=== PATIENT | female | born 1955 | race Caucasian/White ===

== ENCOUNTER → 2018-01-31 | Outpatient (CLI) | payer OTHER ==
[~2018-01-31] MED LIST: AMLO5 PO; CALC.25 PO; CHOL10002 PO; CLON.1 PO; CONESTTC VAG; Calcium 600 W/1 EAC1 PO; FURO20 PO; HYDSUL200 PO; L-LYSINE500 MG PO; LAXATIVE DIETA500 MG PO; LEVSOD100 PO; LOSA50 PO; Nortriptyline H10 MG PO; OMEP20ER PO; POTCHL10ER PO; SIMV10 PO; ZOLP5 PO
== END ==
LOC: LAB SHORT 07:54 → PLD 07:54 → EDSTATUS 10:09
DX: N95.0 Postmenopausal bleeding (principal)
CPT/HCPCS: 88305

== ENCOUNTER 2019-12-18 07:06 | Day surgery (SDC) | payer MEDICARE ==
[~2019-12-18] VITALS: Ht 149.9 cm; Wt 66.9 kg
[~2019-12-18 07:06] MED LIST changes: +BIOTIN2500 MCG PO; +CALCIUM PO; +FA-80.8 MG PO; +GABA100 PO
--- NOTE | 2019-12-18 08:07 | NUR ---
12/18/19 0807 Reva Kinney 1 IV ATTEMPT RH VALVE 1 SUCCESSFUL IV RAC PT TOW
== END 2019-12-18 09:05 | disposition home or self-care (01) ==
LOC: ORSCSDS 07:06
PROVIDERS: Internal Medicine Gastroenterology
PROC: 0DB58ZX Excision of Esophagus, Via Natural or Artificial Opening Endoscopic, Diagnostic (ICD-10-PCS; principal; 2019-12-18 08:30)
DX: R13.10 Dysphagia, unspecified (principal); K21.0 Gastro-esophageal reflux disease with esophagitis; K22.2 Esophageal obstruction; I10 Essential (primary) hypertension; E03.9 Hypothyroidism, unspecified; M06.9 Rheumatoid arthritis, unspecified; N18.2 Chronic kidney disease, stage 2 (mild); Z79.899 Other long term (current) drug therapy
CPT/HCPCS: 88305; 88312; J2704; J7120

== ENCOUNTER 2021-02-04 09:46 | Day surgery (SDC) | payer OTHER ==
[~2021-02-04] VITALS: Ht 149.9 cm; Wt 76.8 kg
--- NOTE | 2021-02-04 13:00 | NUR ---
02/04/21 1300 EMMA VALLE 1212 PT UP TO BATHROOM UPON ENTRY TO SDU. ABLE TO URINIATED.
== END 2021-02-04 12:53 | disposition home or self-care (01) ==
LOC: ORSCSDS 09:46
PROVIDERS: Obstetrics & Gynecology
PROC: 0UDB8ZX Extraction of Endometrium, Via Natural or Artificial Opening Endoscopic, Diagnostic (ICD-10-PCS; principal; 2021-02-04 11:00)
DX: N95.0 Postmenopausal bleeding (principal); D25.0 Submucous leiomyoma of uterus; N84.0 Polyp of corpus uteri; I10 Essential (primary) hypertension; K21.9 Gastro-esophageal reflux disease without esophagitis; N18.9 Chronic kidney disease, unspecified; E03.9 Hypothyroidism, unspecified; E66.9 Obesity, unspecified; Z68.34 Body mass index [BMI] 34.0-34.9, adult; Z79.899 Other long term (current) drug therapy
CPT/HCPCS: 88305; J0690; J1100; J2250; J2405; J2704; J3010; J7120

== ENCOUNTER → 2022-02-17 | Outpatient (CLI) | payer MEDICARE ==
[2022-02-18 09:52] LABS: Stool Occult Bld Immuno 1 Negative (NEGATIVE)
== END | disposition home or self-care (01) ==
LOC: LAB 12:00 → LAB SHORT 12:00
PROVIDERS: Physician Assistant
DX: Z12.11 Encounter for screening for malignant neoplasm of colon (principal)
CPT/HCPCS: G0328

== ENCOUNTER 2022-10-20 10:57 | Day surgery (SDC) | payer MEDICARE ==
[2022-10-18 10:21] LABS: BASOPHILS ABSOLUTE AUTO 0.06 K/mm3 (0.00-0.23); BASOPHILS PERCENT AUTO 1 % (0-2); EOSINOPHILS ABSOLUTE AUTO 0.23 K/mm3 (0.00-0.68); EOSINOPHILS PERCENT AUTO 3 % (0-6); Hematocrit 40.9 % (33.0-51.0); Hemoglobin 13.3 g/dL (11.5-16.0); IMMATURE GRAN ABSOLUTE AUTO 0.07 K/mm3 (0.00-0.10); IMMATURE GRAN PERCENT AUTO 1 % (0-1); LYMPHOCYTES ABSOLUTE AUTO 1.54 K/mm3 (0.84-5.20); LYMPHOCYTES PERCENT AUTO 21 % (21-46); MONOCYTES ABSOLUTE AUTO 0.58 K/mm3 (0.16-1.47); MONOCYTES PERCENT AUTO 8 % (4-13); Mean Corpuscular HGB 29.3 pg (26.0-34.0); Mean Corpuscular HGB Conc 32.5 g/dL (31.5-36.5); Mean Corpuscular Volume 90 fL (80-100); Mean Platelet Volume 11.5 fL (9.1-12.4); NEUTROPHILS ABSOLUTE AUTO 4.92 K/mm3 (1.96-9.15); NEUTROPHILS PERCENT AUTO 67 % (41-73); Platelet Count 260 K/mm3 (150-400); RDW Coefficient Variation 13.1 % (11.7-14.2); RDW Standard Deviation 43.4 fL (35.1-46.3); Red Blood Cell Count 4.54 M/mm3 (3.80-5.20)
[~2022-10-20] VITALS: Ht 149.9 cm; Wt 68.4 kg
[~2022-10-20 10:57] MED LIST changes: +PANT40 PO
[2022-10-20 14:34] LABS: Bicarbonate Venous 25.2 mmol/L (24.0-30.0); PCO2 Venous 36.7 mmHg (38-42); pH Blood Venous 7.44 (7.34-7.37)
[2022-10-20 15:14] LABS: Bun/Creatinine Ratio 17.6 (12.0-20.0); Calcium, Blood 7.7 mg/dL (8.5-10.1); Creatinine, Blood 1.25 mg/dL (0.40-1.00); Potassium, Blood 3.5 mmol/L (3.5-5.5)
--- NOTE | 2022-10-20 18:39 | NUR ---
PATIENT ARRIVED TO UNIT AT 1815. TRANSFERRED FROM [facility] TO BED VIA SLIDER SHEET. VSS ON 2L 02, SATS >92%. LUNGS CLEAR. X4 LAP SITES TO ABDOMEN W/ DERMABOND, C/D/I. ATKINS CATH IN PLACE DRAINING CLEAR YELLOW URINE TO GRAVITY. PATIENT REPORTS PAIN 3/10 AT THIS TIME, PLAN TO MEDICATE FOR PAIN AND NAUSEA PER EMAR PRN. ORIENTED TO ROOM AND CALL LIGHT, IN REACH. WILL REPORT TO ONCOMING RN AT 1900.
--- NOTE | 2022-10-20 22:00 | NUR ---
PLACED ABDOMINAL BINDER ON. PT TOLERATED THIS PROCEDURE WELL.
--- NOTE | 2022-10-20 23:30 | NUR ---
PLACED 2L O2 BACK ON, PT IS SNORING AND PT IS IN HIGH SEMI FOWLERS POSITION IN BED.
--- NOTE | 2022-10-21 01:01 | NUR ---
O2 TURNED DOWN TO 1L VIA NC, SATS WNL. WILL CONTINUE TO MONITOR AND WEAN O2 OFF.
--- NOTE | 2022-10-21 04:09 | NUR ---
PT REPORTS GERD TYPE PAIN, RADIATES UP INTO HER THROAT. PT DENIES ANY SOB, SHOULDER/JAW PAIN, N/T, BACK PAIN, OR NAUSEA. PT DIDN'T TAKE HER PROTONIX LAST NOC - RELAYED THE ABOVE INFORMATION TO NETO LOMBARDI - RECOMMENDATION IS TO TRY PROTONIX PO EARLY TO DETERMINE IF THIS DECREASES HER PAIN. REPORTED TO PT TO CALL IF PAIN INCREASES. WILL CONTINUE TO MONITOR UNTIL AM SHIFT CHANGE. CALL LIGHT WITHIN REACH. FLUIDS/ICE CHIPS AT BEDSIDE - PT TOLERATING PO FLUIDS WELL.
--- NOTE | 2022-10-21 04:37 | NUR ---
SHIFT SUMMARY - PT HAS GERD TYPE PAIN THIS AM - SEE PREVIOUS NOTE - MONITORING TO SEE IF RELIEF AFTER PRILOSEC GIVEN THIS AM. PT'S HOB ELEVATED, PT REPORTED "A LITTLE RELIEF" WITH THIS INTERVENTION. OTHERWISE NO ACUTE CHANGES THROUGHOUT THIS SHIFT. PT TOLERATING PO FLUIDS, ICE CHIPS, JELLO WITHOUT COMPLICATIONS. PT DID COMPLAIN OF THROAT PAIN - ICE CHIPS PROVIDED WITH RELIEF. KPAD TO ABDOMEN, ALONG WITH ABDOMINAL BINDER AND PILLOW FOR TCDB. IS AT BEDSIDE - PROVIDED INSTRUCTION ON USE. PT HAS BEEN SLEEPING THROUGHOUT MOST OF THE NIGHT. WILL CONTINUE TO MONITOR UNTIL AM SHIFT CHANGE.
[2022-10-21 05:17] LABS: BASOPHILS ABSOLUTE AUTO 0.01 K/mm3 (0.00-0.23); BASOPHILS PERCENT AUTO 0 % (0-2); EOSINOPHILS PERCENT AUTO 0 % (0-6); Hemoglobin 12.3 g/dL (11.5-16.0); IMMATURE GRAN ABSOLUTE AUTO 0.05 K/mm3 (0.00-0.10); IMMATURE GRAN PERCENT AUTO 0 % (0-1); LYMPHOCYTES ABSOLUTE AUTO 0.97 K/mm3 (0.84-5.20); LYMPHOCYTES PERCENT AUTO 8 % (21-46); MONOCYTES PERCENT AUTO 2 % (4-13); Mean Corpuscular HGB 29.6 pg (26.0-34.0); Mean Corpuscular HGB Conc 33.2 g/dL (31.5-36.5); Mean Corpuscular Volume 89 fL (80-100); Mean Platelet Volume 11.4 fL (9.1-12.4); NEUTROPHILS ABSOLUTE AUTO 10.61 K/mm3 (1.96-9.15); NEUTROPHILS PERCENT AUTO 90 % (41-73); Platelet Count 243 K/mm3 (150-400); RDW Coefficient Variation 13.1 % (11.7-14.2); RDW Standard Deviation 43.3 fL (35.1-46.3); Red Blood Cell Count 4.15 M/mm3 (3.80-5.20); White Blood Cell Count 11.84 K/mm3 (4.00-11.30)
--- NOTE | 2022-10-21 05:40 | NUR ---
ATKINS REMOVED, JERI CARE PROVIDED, SCANT AMOUNT OF BLOOD ON JERI PAD. PT REPORTS GERD PAIN IS GONE. OXYGEN REMOVED. PT SITTING UP IN HIGH SEMI FOWLERS POSITION. CALL LIGHT WITHIN REACH. BED IN LOW POSITION. FLUIDS AT BEDSIDE.
[2022-10-21] MEDS ORDERED: Percocet 5-3251 EACH PO (11:25)
[2022-10-21] MEDS ORDERED: SIME80CH PO (11:25)
[2022-10-21] MEDS ORDERED: PROM25 PO (11:25)
--- NOTE | 2022-10-21 11:30 | NUR ---
DISCHARGE NOTE: PATIENT WAS EDUCATED ON DISCHARGE INSTRUCTIONS. SHE VERBALIZED UNDERSTANDING OF INSTRUCTIONS AND HAD NO FURTHER QUESTIONS AT THIS TIME. IV WAS TAKEN OUT AND WNL. PAIN IS MANAGED WITH ORAL PAIN MEDICATIONS. HER ABD X4 LAP SITES WITH WOUND GLUE ARE C/D/I. THERE IS A SCANT AMOUNT OF BLOOD ON HER JERI PAD. SHE IS TOLERATING PO INTAKE AND IS VOIDING. PATIENT IS DRESSED AND HAS HER PERSONAL ITEMS IN THE ROOM GATHERED. HARD PERSCRIPTIONS WERE ALREADY FILLED OUT PRIOR TO PROCEDURE. PATIENT IS BEING WHEELCHAIRED OUT TO HER HUSBANDS CAR TO BE TAKEN HOME.
== END 2022-10-21 11:30 | disposition home or self-care (01) ==
LOC: ORSCMMR 10:57 → ORD 12:30 → ORSCMMR 13:00 → SURS 18:21 → ORSCMMR 10-21 11:30
PROVIDERS: Anesthesiology; Obstetrics & Gynecology
PROC: 8E0W4CZ Robotic Assisted Procedure of Trunk Region, Percutaneous Endoscopic Approach (ICD-10-PCS; principal; 2022-10-20 13:00)
PROC: 0UT2FZZ Resection of Bilateral Ovaries, Via Natural or Artificial Opening With Percutaneous Endoscopic Assistance (ICD-10-PCS; principal; 2022-10-20 13:00)
PROC: 0UT7FZZ Resection of Bilateral Fallopian Tubes, Via Natural or Artificial Opening With Percutaneous Endoscopic Assistance (ICD-10-PCS; principal; 2022-10-20 13:00)
PROC: 0UT9FZZ Resection of Uterus, Via Natural or Artificial Opening With Percutaneous Endoscopic Assistance (ICD-10-PCS; principal; 2022-10-20 13:00)
DX: N95.0 Postmenopausal bleeding (principal); D25.0 Submucous leiomyoma of uterus; N83.292 Other ovarian cyst, left side; N83.291 Other ovarian cyst, right side; N94.89 Other specified conditions associated with female genital organs and menstrual cycle; K66.0 Peritoneal adhesions (postprocedural) (postinfection); N70.11 Chronic salpingitis; N80.03 Adenomyosis of the uterus; I12.9 Hypertensive chronic kidney disease with stage 1 through stage 4 chronic kidney disease, or unspecified chronic kidney disease; N18.9 Chronic kidney disease, unspecified; E03.9 Hypothyroidism, unspecified; Z79.899 Other long term (current) drug therapy
CPT/HCPCS: 58571; S2900; 36415; 80048; 82803; 85025; 86850; 86900; 86901; 88307; 93005; 93010; 94760; A9270; J0690; J1100; J1170; J1650; J2370; J2405; J2550; J2704; J3010; J7120

== ENCOUNTER 2024-08-30 17:17 | Inpatient (IN) | payer MEDICARE ==
[~2024-08-30] VITALS: Ht 149.9 cm; Wt 67.2 kg
[~2024-08-30 17:17] MED LIST changes: -ATOR10 PO; -Amoxicillin500 MG PO; -BUDESONIDE1 MG/2 M1 INH; -CALCIUM CARBON500 M1 PO; -CYMBALTA30 M2 PO; -DEXA.5 PO; -GLIP2.5ER PO; -LEVOTHYROXINE112 M18 PO; -METF500 PO; -METFORMIN HCL500 M2 PO; -PREG150 PO
[2024-08-30 18:35] LABS: Base Excess Venous 4.4 mmol/L; Bicarbonate Venous 26.9 mmol/L (24.0-30.0); pH Blood Venous 7.39 (7.34-7.37)
[2024-08-30 19:06] LABS: Source, Urine Clean Catch
[2024-08-30 19:11] LABS: Appearance, Urine Clear (Clear); Bilirubin, Urine Neg (Neg); Blood, Urine 2+ (Neg); Color, Urine Yellow (P-Yellow); Glucose Qualitative, Urine 3+ (Neg); Ketones, Urine Neg (Neg); Leukocyte Esterase, Urine 2+ (Neg); Nitrite, Urine Neg (Neg); Protein, Urine 3+ (Neg); Urobilinogen, Urine NORM (Normal)
[2024-08-30 19:22] LABS: Albumin, Blood 4.1 g/dL (3.4-5.0); Albumin/Globulin Ratio 1.1 (0.8-1.8); Beta-hydroxybutyrate 3.4 mg/dL (0.2-2.8); Bilirubin, Total 0.5 mg/dL (0.1-1.0); Bun/Creatinine Ratio 16.9 (12.0-20.0); Calcium, Blood 8.2 mg/dL (8.5-10.1); Creatinine, Blood 3.32 mg/dL (0.40-1.00); Globulin, Blood 3.7 g/dL (2.2-4.0); Total Protein, Blood 7.8 g/dL (6.4-8.2)
[2024-08-30 19:23] LABS: Bacteria Mod /hpf; Squamous Epithelial Cells Few /hpf (Few)
[2024-08-30] MEDS ORDERED: LEVOTHYROXINE112 M18 PO (21:09)
[2024-08-30] MEDS ORDERED: CYMBALTA30 M2 PO (21:11)
[2024-08-30] MEDS ORDERED: METF500 PO (21:11)
[2024-08-30] MEDS ORDERED: METFORMIN HCL500 M2 PO (21:11)
[2024-08-30] MEDS ORDERED: PREG150 PO (21:12)
[2024-08-30] MEDS ORDERED: ATOR10 PO (21:13)
[2024-08-30] MEDS ORDERED: NS 1,000 ML IV SCH (22:45)
[2024-08-30] MEDS ORDERED: CefTRIAXone Sodium 1,000 MG in NS 50 ML IV ONE (22:45)
[2024-08-31] MEDS ORDERED: Magnesium Hydroxide Conc 10 ML UDC PO PRN (00:55)
[2024-08-31] MEDS ORDERED: NS 1,000 ML IV SCH (00:55)
[2024-08-31] MEDS ORDERED: Metoclopramide HCl 10 MG Tab PO PRN (00:55)
[2024-08-31] MEDS ORDERED: FLU VACC TS2024-25(6MOS UP)/PF 45 MCG/0.5 ML SYRINGE IM SCH (01:00)
[2024-08-31 05:22] LABS: BASOPHILS ABSOLUTE AUTO 0.05 K/mm3 (0.00-0.23); BASOPHILS PERCENT AUTO 1 % (0-2); EOSINOPHILS ABSOLUTE AUTO 0.38 K/mm3 (0.00-0.68); EOSINOPHILS PERCENT AUTO 6 % (0-6); Hematocrit 36.8 % (33.0-51.0); Hemoglobin 12.3 g/dL (11.5-16.0); IMMATURE GRAN ABSOLUTE AUTO 0.03 K/mm3 (0.00-0.10); IMMATURE GRAN PERCENT AUTO 1 % (0-1); LYMPHOCYTES ABSOLUTE AUTO 1.59 K/mm3 (0.84-5.20); LYMPHOCYTES PERCENT AUTO 25 % (21-46); MONOCYTES ABSOLUTE AUTO 0.43 K/mm3 (0.16-1.47); MONOCYTES PERCENT AUTO 7 % (4-13); Mean Corpuscular HGB 29.7 pg (26.0-34.0); Mean Corpuscular HGB Conc 33.4 g/dL (31.5-36.5); Mean Corpuscular Volume 89 fL (80-100); Mean Platelet Volume 12.3 fL (9.1-12.4); NEUTROPHILS ABSOLUTE AUTO 3.89 K/mm3 (1.96-9.15); NEUTROPHILS PERCENT AUTO 61 % (41-73); Platelet Count 155 K/mm3 (150-400); RDW Coefficient Variation 13.9 % (11.7-14.2); RDW Standard Deviation 45.5 fL (35.1-46.3); Red Blood Cell Count 4.14 M/mm3 (3.80-5.20); White Blood Cell Count 6.37 K/mm3 (4.00-11.30)
[2024-08-31 05:47] LABS: Albumin, Blood 3.4 g/dL (3.4-5.0); Albumin/Globulin Ratio 1.1 (0.8-1.8); Bilirubin, Total 0.3 mg/dL (0.1-1.0); Bun/Creatinine Ratio 16.9 (12.0-20.0); Calcium, Blood 7.4 mg/dL (8.5-10.1); Creatinine, Blood 2.72 mg/dL (0.40-1.00); Globulin, Blood 3.2 g/dL (2.2-4.0); Potassium, Blood 3.7 mmol/L (3.5-5.5); Total Protein, Blood 6.6 g/dL (6.4-8.2)
[2024-08-31] MEDS ORDERED: Acetaminophen 500 MG Tab PO PRN (07:10)
[2024-08-31] MEDS ORDERED: Polyethylene Glycol 3350 17 gm PO PRN (07:10)
[2024-08-31] MEDS ORDERED: OxyCODONE 5 mg/Acetamin 325 mg TABLET PO PRN (07:15)
[2024-08-31] MEDS ORDERED: Insulin Human Lispro 100 Units/ML 3ML Syringe SC SCH (07:30)
[2024-08-31] MEDS ORDERED: Pantoprazole Sodium 40 MG Tab PO SCH (07:30)
[2024-08-31] MEDS ORDERED: AmLODIPine Besylate 5 MG Tab PO SCH (09:00)
[2024-08-31] MEDS ORDERED: Calcitriol 0.25 MCG Cap PO SCH (09:00)
[2024-08-31] MEDS ORDERED: Famotidine 20 MG Tab PO SCH (09:00)
[2024-08-31] MEDS ORDERED: Lactobacil 2-S.Thermo-Bifido 1 1 Cap PO SCH (09:00)
[2024-08-31] MEDS ORDERED: DULoxetine HCL 30 MG Cap DR PO SCH (09:00)
[2024-08-31] MEDS ORDERED: Pregabalin 75 MG Cap PO SCH (09:00)
[2024-08-31] MEDS ORDERED: Levothyroxine Sodium 0.112 MG Tab PO SCH (09:00)
[2024-08-31] MEDS ORDERED: Enoxaparin 30 MG/0.3 ML SYR SC SCH (09:00)
[2024-08-31 13:30] VITALS: BP 132/61
[2024-08-31] MEDS ORDERED: CALCIUM CARBON500 M1 PO (13:59)
[2024-08-31] MEDS ORDERED: ZOLP5 PO (14:03)
[2024-08-31] MEDS ORDERED: BUDESONIDE1 MG/2 M1 INH (14:04)
[2024-08-31] MEDS ORDERED: DEXA.5 PO (14:05)
--- NOTE | 2024-08-31 14:35 | NUR ---
ADMISSION NOTE PATIENT A/OX4, ABLE TO MAKE NEEDS KNOWN. FAMILY AT BEDSIDE DURING ADMISSION. BLOOD SUGAR IN 250s UPON ARRIVAL, INSULIN ADMINISTERED PER MAR. PATIENT ADMITTED WITH FRANK, HYPERGLYCEMIA, AND UTI. PATIENT STATES IS NEWLY DIAGNOSED WITH DM, WAS PREDIEBETIC BEFORE AND STATES HIGH BLOOD SUGARS COULD POSSIBLY BE RELATED TO NEW CANCER MEDS. TELEMETRY IN PLACE. NEW IV PLACED TO LEFT UPPER ARM AND IV TO RIGTH UPPER ARM REMOVED FOR LEAKING.
[2024-08-31 15:27] VITALS: BP 115/61
--- NOTE | 2024-08-31 18:03 | NUR ---
SHIFT SUMMARY PATIENT A/OX4, ABLE TO MAKE NEEDS KNOWN. INDEPENDENT IN ROOM. NO CHANGES SINCE ADMISSION. FAMILY AT BEDSIDE. NEW IV PLACED TO RIGHT UPPER ARM THIS SHIFT. BLOOD SUGARS TRENDING DOWN SINCE ADMISSION, 230s LAST CHECKED. NO OTHER CONCENRS AT THIS TIME.
[2024-08-31 20:46] VITALS: BP 149/67
[2024-08-31] MEDS ORDERED: Docusate Sodium/Senna 1 Tab PO SCH (21:00)
[2024-08-31] MEDS ORDERED: CefTRIAXone Sodium 1,000 MG in NS 100 ML IV SCH (21:00)
[2024-08-31] MEDS ORDERED: Amoxicillin 500 MG Cap PO SCH (21:00)
--- NOTE | 2024-09-01 02:54 | NUR ---
SHIFT SUMMARY @HS FAMILY BY THE BEDSIDE. PT IS A/O X4, PLEASANT AND COOPERATIVE WITH CARE. PT AMBULATES INDEPENDENTLY W/I HOSPITAL ROOM. NO C/O PAIN, N/V DURING THIS SHIFT. TELE; NSR @68. HS B. O2 SAT'S ON RA 100%. NO ACUTE EVENTS DURING THIS SHIFT. BED AT THE LOWEST POSITION, CALL LIGHT W/I REACH. PT IS ABLE TO MAKE HER NEEDS KNOWN.
[2024-09-01 05:05] VITALS: BP 103/60
[2024-09-01 05:59] LABS: Hematocrit 39.4 % (33.0-51.0); Mean Corpuscular HGB 29.5 pg (26.0-34.0); Mean Corpuscular Volume 89 fL (80-100); Mean Platelet Volume 12.3 fL (9.1-12.4); Platelet Count 149 K/mm3 (150-400); RDW Coefficient Variation 13.6 % (11.7-14.2); RDW Standard Deviation 44.2 fL (35.1-46.3); Red Blood Cell Count 4.41 M/mm3 (3.80-5.20); White Blood Cell Count 4.65 K/mm3 (4.00-11.30)
[2024-09-01 06:32] LABS: Albumin, Blood 3.2 g/dL (3.4-5.0); Anion Gap 12 mmol/L (3-11); Blood Urea Nitrogen 24 mg/dL (8-24); CO2, Blood 26 mmol/L (21-32); Calcium, Blood 7.3 mg/dL (8.5-10.1); Chloride, Blood 106 mmol/L (98-108); Creatinine, Blood 1.85 mg/dL (0.40-1.00); Glomerular Filtration Rate 29 (60-); Glucose, Blood 239 mg/dL (70-99); Magnesium, Blood 1.7 mg/dL (1.6-2.4); Phosphorus, Blood 2.2 mg/dL (2.5-4.9); Potassium, Blood 3.5 mmol/L (3.5-5.5); Sodium, Blood 140 mmol/L (136-145)
[2024-09-01 07:57] VITALS: BP 112/62
[2024-09-01] MEDS ORDERED: GLIP2.5ER PO (11:45)
[2024-09-01] MEDS ORDERED: Amoxicillin500 MG PO (11:45)
--- NOTE | 2024-09-01 12:18 | NUR ---
DISCHARGE NOTE PATIENT A/OX4, ABLE TO MAKE NEEDS KNOWN. PLEASANT AND COOPERATIVE WITH CARE. INDEPENDENT IN ROOM. IV REMOVED AND MEDICATIONS FAXED TO [facility] PER PATIENT REQUEST HOME PHARMACY IS CLOSED TODAY. NEW MEDICATIONS ADN FOLLOW UP INSTRUCTIONS DISCUSSED AND PATIENT AGREEABLE. FAMILY AT BEDSIDE DURING DISCHARGE EDUCATION. NO OTHER CONCERNS AT THIS TIME.
== END 2024-09-01 12:05 | disposition home or self-care (01) | DRG 683 ==
LOC: ER 17:17 → ERHOLD 08-31 → MEDS 08-31 13:23
PROVIDERS: Internal Medicine; Physician Assistant; Student in an Organized Health Care Education/Training Program; ADMIT Internal Medicine
DX: N17.9 Acute kidney failure, unspecified (principal); C79.51 Secondary malignant neoplasm of bone; E87.1 Hypo-osmolality and hyponatremia; E11.65 Type 2 diabetes mellitus with hyperglycemia; I12.9 Hypertensive chronic kidney disease with stage 1 through stage 4 chronic kidney disease, or unspecified chronic kidney disease; E11.22 Type 2 diabetes mellitus with diabetic chronic kidney disease; M06.9 Rheumatoid arthritis, unspecified; K21.9 Gastro-esophageal reflux disease without esophagitis; Z96.611 Presence of right artificial shoulder joint; E86.0 Dehydration; C50.919 Malignant neoplasm of unspecified site of unspecified female breast; N18.32 Chronic kidney disease, stage 3b; K04.7 Periapical abscess without sinus; D63.1 Anemia in chronic kidney disease; R82.71 Bacteriuria; E55.9 Vitamin D deficiency, unspecified; E78.00 Pure hypercholesterolemia, unspecified; R76.9 Abnormal immunological finding in serum, unspecified; R94.5 Abnormal results of liver function studies; R94.6 Abnormal results of thyroid function studies; R31.9 Hematuria, unspecified; Z88.8 Allergy status to other drugs, medicaments and biological substances; Z91.048 Other nonmedicinal substance allergy status; Z79.890 Hormone replacement therapy; Z79.899 Other long term (current) drug therapy; Z79.84 Long term (current) use of oral hypoglycemic drugs; Z98.890 Other specified postprocedural states; Z79.891 Long term (current) use of opiate analgesic; Z28.21 Immunization not carried out because of patient refusal
CPT/HCPCS: 36415; 80053; 80069; 81001; 82010; 82728; 82803; 82947; 83036; 83540; 83550; 83735; 85018; 85025; 85027; 87086; 96361; 96365; 96372; 99285-25; A9270; G0378; J0696; J1650; J7030

== ENCOUNTER → 2024-08-30 | Outpatient (CLI) | payer MEDICARE ==
[~2024-08-30] MED LIST changes: +ATOR10 PO; +Amoxicillin500 MG PO; +BUDESONIDE1 MG/2 M1 INH; +CALCIUM CARBON500 M1 PO; +CYMBALTA30 M2 PO; +DEXA.5 PO; +GLIP2.5ER PO; +LEVOTHYROXINE112 M18 PO; +METF500 PO; +METFORMIN HCL500 M2 PO; +PREG150 PO; +PROM25 PO; +Percocet 5-3251 EACH PO; +SIME80CH PO
[2024-08-30 15:59] LABS: BASOPHILS ABSOLUTE AUTO 0.05 K/mm3 (0.00-0.23); BASOPHILS PERCENT AUTO 1 % (0-2); EOSINOPHILS ABSOLUTE AUTO 0.44 K/mm3 (0.00-0.68); EOSINOPHILS PERCENT AUTO 5 % (0-6); Hematocrit 42.3 % (33.0-51.0); Hemoglobin 14.5 g/dL (11.5-16.0); IMMATURE GRAN ABSOLUTE AUTO 0.03 K/mm3 (0.00-0.10); IMMATURE GRAN PERCENT AUTO 0 % (0-1); LYMPHOCYTES ABSOLUTE AUTO 2.12 K/mm3 (0.84-5.20); LYMPHOCYTES PERCENT AUTO 25 % (21-46); MONOCYTES ABSOLUTE AUTO 0.47 K/mm3 (0.16-1.47); MONOCYTES PERCENT AUTO 6 % (4-13); Mean Corpuscular HGB 29.2 pg (26.0-34.0); Mean Corpuscular HGB Conc 34.3 g/dL (31.5-36.5); Mean Corpuscular Volume 85 fL (80-100); Mean Platelet Volume 12.8 fL (9.1-12.4); NEUTROPHILS PERCENT AUTO 63 % (41-73); Platelet Count 194 K/mm3 (150-400); RDW Coefficient Variation 14.2 % (11.7-14.2); RDW Standard Deviation 43.4 fL (35.1-46.3); Red Blood Cell Count 4.97 M/mm3 (3.80-5.20); White Blood Cell Count 8.41 K/mm3 (4.00-11.30)
[2024-08-30 16:07] LABS: Albumin, Blood 4.7 g/dL (3.4-5.0); Albumin/Globulin Ratio 1.1 (0.8-1.8); Bilirubin, Total 0.6 mg/dL (0.1-1.0); Calcium, Blood 9.1 mg/dL (8.5-10.1); Creatinine, Blood 4.19 mg/dL (0.40-1.00); Globulin, Blood 4.2 g/dL (2.2-4.0); Potassium, Blood 4.1 mmol/L (3.5-5.5); Total Protein, Blood 8.9 g/dL (6.4-8.2)
== END | disposition home or self-care (01) ==
LOC: LAB SHORT 15:52 → LAB 15:52
DX: R31.9 Hematuria, unspecified (principal); R73.09 Other abnormal glucose
CPT/HCPCS: 80053; 85025; 87086

== ENCOUNTER → 2024-12-23 | Outpatient (CLI) | payer MEDICARE ==
[~2024-12-23] MED LIST changes: +ATOR10 PO; +Amoxicillin500 MG PO; +BUDESONIDE1 MG/2 M1 INH; +CALCIUM CARBON500 M1 PO; +CYMBALTA30 M2 PO; +DEXA.5 PO; +GLIP2.5ER PO; +LEVOTHYROXINE112 M18 PO; +METF500 PO; +METFORMIN HCL500 M2 PO; +PREG150 PO
[2024-12-23 14:15] LABS: BASOPHILS ABSOLUTE AUTO 0.01 K/mm3 (0.00-0.23); BASOPHILS PERCENT AUTO 0 % (0-2); EOSINOPHILS ABSOLUTE AUTO 0.09 K/mm3 (0.00-0.68); EOSINOPHILS PERCENT AUTO 1 % (0-6); Hematocrit 34.1 % (33.0-51.0); Hemoglobin 11.7 g/dL (11.5-16.0); IMMATURE GRAN ABSOLUTE AUTO 0.04 K/mm3 (0.00-0.10); IMMATURE GRAN PERCENT AUTO 1 % (0-1); LYMPHOCYTES ABSOLUTE AUTO 0.89 K/mm3 (0.84-5.20); LYMPHOCYTES PERCENT AUTO 13 % (21-46); MONOCYTES ABSOLUTE AUTO 0.22 K/mm3 (0.16-1.47); MONOCYTES PERCENT AUTO 3 % (4-13); Mean Corpuscular HGB 31.5 pg (26.0-34.0); Mean Corpuscular HGB Conc 34.3 g/dL (31.5-36.5); Mean Corpuscular Volume 92 fL (80-100); Mean Platelet Volume 12.3 fL (9.1-12.4); NEUTROPHILS ABSOLUTE AUTO 5.87 K/mm3 (1.96-9.15); NEUTROPHILS PERCENT AUTO 82 % (41-73); Platelet Count 260 K/mm3 (150-400); RDW Coefficient Variation 14.8 % (11.7-14.2); RDW Standard Deviation 50.3 fL (35.1-46.3); Red Blood Cell Count 3.71 M/mm3 (3.80-5.20); White Blood Cell Count 7.12 K/mm3 (4.00-11.30)
[2024-12-23 14:32] LABS: Albumin, Blood 3.2 g/dL (3.4-5.0); Albumin/Globulin Ratio 1.1 (0.8-1.8); Bilirubin, Total 0.6 mg/dL (0.1-1.0); Bun/Creatinine Ratio 18.7 (12.0-20.0); Calcium, Blood 7.4 mg/dL (8.5-10.1); Creatinine, Blood 1.23 mg/dL (0.40-1.00); Potassium, Blood 3.2 mmol/L (3.5-5.5); Total Protein, Blood 6.2 g/dL (6.4-8.2)
== END ==
LOC: LAB 13:59 → LAB SHORT 13:59
PROVIDERS: Internal Medicine Hematology & Oncology
DX: C50.919 Malignant neoplasm of unspecified site of unspecified female breast (principal)
CPT/HCPCS: 80053; 85025

== ENCOUNTER 2025-05-30 01:13 | Day surgery (SDC) | payer MEDICARE ==
[~2025-05-30 01:13] MED LIST changes: +CefTRIAXone Sodium 2,000 MG in NS 100 ML IV SCH
[2025-05-30 17:00] VITALS: BP 111/66
[2025-05-30 18:16] LABS: BASOPHILS ABSOLUTE AUTO 0.05 K/mm3 (0.00-0.23); BASOPHILS PERCENT AUTO 1 % (0-2); EOSINOPHILS ABSOLUTE AUTO 0.24 K/mm3 (0.00-0.68); EOSINOPHILS PERCENT AUTO 4 % (0-6); Hematocrit 31.3 % (33.0-51.0); Hemoglobin 10.4 g/dL (11.5-16.0); IMMATURE GRAN ABSOLUTE AUTO 0.03 K/mm3 (0.00-0.10); IMMATURE GRAN PERCENT AUTO 1 % (0-1); LYMPHOCYTES ABSOLUTE AUTO 1.37 K/mm3 (0.84-5.20); LYMPHOCYTES PERCENT AUTO 23 % (21-46); MONOCYTES ABSOLUTE AUTO 0.51 K/mm3 (0.16-1.47); MONOCYTES PERCENT AUTO 9 % (4-13); Mean Corpuscular HGB Conc 33.2 g/dL (31.5-36.5); Mean Corpuscular Volume 98 fL (80-100); NEUTROPHILS ABSOLUTE AUTO 3.78 K/mm3 (1.96-9.15); NEUTROPHILS PERCENT AUTO 63 % (41-73); NRBC ABSOLUTE 0.00 K/mm3 (0.00-0.02); NRBC Auto 0.0 /100 WBC (0.0-0.2); Platelet Count 248 K/mm3 (150-400); RDW Coefficient Variation 15.0 % (11.7-14.2); RDW Standard Deviation 54.7 fL (35.1-46.3)
[2025-05-30 18:32] LABS: C-REACTIVE PROTEIN, EXT RANGE 1.14 mg/dL (0.000-0.300)
[2025-05-30 18:34] LABS: Alanine Aminotransfer (ALT/SGP 24.0 U/L (12-78); Albumin, Blood 3.0 g/dL (3.4-5.0); Albumin/Globulin Ratio 0.9 (0.8-1.8); Anion Gap 7.0 mmol/L (3-11); Aspartate Aminotrans (AST/SGOT 31.0 U/L (12-37); Bilirubin, Total 0.3 mg/dL (0.1-1.0); Blood Urea Nitrogen 14.0 mg/dL (8-24); CO2, Blood 29.0 mmol/L (21-32); Calcium, Blood 7.4 mg/dL (8.5-10.1); Chloride, Blood 108.0 mmol/L (98-108); Creatinine, Blood 1.02 mg/dL (0.40-1.00); Globulin, Blood 3.3 g/dL (2.2-4.0); Glucose, Blood 160.0 mg/dL (70-99); Potassium, Blood 3.1 mmol/L (3.5-5.5); Sodium, Blood 141.0 mmol/L (136-145); Total Protein, Blood 6.3 g/dL (6.4-8.2)
[2025-05-30] MEDS ORDERED: CEFTRIAXONE2 G1 IV (18:49)
== END 2025-05-30 18:30 | disposition home or self-care (01) ==
LOC: ATC 01:13
PROVIDERS: Internal Medicine Infectious Disease
DX: M27.2 Inflammatory conditions of jaws (principal); Z79.899 Other long term (current) drug therapy; Z88.8 Allergy status to other drugs, medicaments and biological substances; Z79.890 Hormone replacement therapy
CPT/HCPCS: 36569; 80053; 85025; 86140; 96365; C1751; J0696

== ENCOUNTER 2025-05-31 02:27 | Day surgery (SDC) | payer MEDICARE ==
[~2025-05-31 02:27] MED LIST changes: +CEFTRIAXONE2 G1 IV
[2025-05-31 15:28] VITALS: BP 150/69
== END 2025-05-31 15:54 | disposition home or self-care (01) ==
LOC: ATC 02:27
DX: M27.2 Inflammatory conditions of jaws (principal); Z79.899 Other long term (current) drug therapy
CPT/HCPCS: 96365; J0696

== ENCOUNTER 2025-06-01 01:56 | Day surgery (SDC) | payer MEDICARE ==
[~2025-06-01 01:56] MED LIST changes: -CefTRIAXone Sodium 2,000 MG in NS 100 ML IV SCH
[2025-06-01] MEDS ORDERED: CefTRIAXone Sodium 2,000 MG in NS 100 ML IV SCH (06:00)
[2025-06-01 15:26] VITALS: BP 151/75
== END 2025-06-01 15:52 | disposition home or self-care (01) ==
LOC: ATC 01:56
DX: M27.2 Inflammatory conditions of jaws (principal); I10 Essential (primary) hypertension; M81.0 Age-related osteoporosis without current pathological fracture; Z88.8 Allergy status to other drugs, medicaments and biological substances; Z88.6 Allergy status to analgesic agent; Z79.899 Other long term (current) drug therapy
CPT/HCPCS: 96365; J0696

== ENCOUNTER 2025-06-02 07:41 | Day surgery (SDC) | payer MEDICARE ==
[2025-06-02] MEDS ORDERED: CefTRIAXone Sodium 2,000 MG in NS 100 ML IV SCH (11:10)
[2025-06-02 15:27] VITALS: BP 158/72
== END 2025-06-02 16:07 | disposition home or self-care (01) ==
LOC: ATC 07:41
DX: M27.2 Inflammatory conditions of jaws (principal); I10 Essential (primary) hypertension; Z88.6 Allergy status to analgesic agent; Z88.8 Allergy status to other drugs, medicaments and biological substances; Z79.899 Other long term (current) drug therapy
CPT/HCPCS: 96365; J0696

== ENCOUNTER 2025-06-05 02:53 | Day surgery (SDC) | payer MEDICARE ==
[2025-06-05 13:29] VITALS: BP 151/77
[2025-06-05 14:07] LABS: BASOPHILS ABSOLUTE AUTO 0.04 K/mm3 (0.00-0.23); BASOPHILS PERCENT AUTO 1 % (0-2); EOSINOPHILS ABSOLUTE AUTO 0.27 K/mm3 (0.00-0.68); EOSINOPHILS PERCENT AUTO 4 % (0-6); Hematocrit 35.2 % (33.0-51.0); Hemoglobin 11.3 g/dL (11.5-16.0); IMMATURE GRAN ABSOLUTE AUTO 0.04 K/mm3 (0.00-0.10); IMMATURE GRAN PERCENT AUTO 1 % (0-1); LYMPHOCYTES ABSOLUTE AUTO 1.53 K/mm3 (0.84-5.20); LYMPHOCYTES PERCENT AUTO 21 % (21-46); MONOCYTES ABSOLUTE AUTO 0.63 K/mm3 (0.16-1.47); MONOCYTES PERCENT AUTO 9 % (4-13); Mean Corpuscular HGB Conc 32.1 g/dL (31.5-36.5); Mean Corpuscular Volume 98 fL (80-100); NEUTROPHILS ABSOLUTE AUTO 4.81 K/mm3 (1.96-9.15); NEUTROPHILS PERCENT AUTO 66 % (41-73); NRBC ABSOLUTE 0.00 K/mm3 (0.00-0.02); NRBC Auto 0.0 /100 WBC (0.0-0.2); Platelet Count 289 K/mm3 (150-400); RDW Coefficient Variation 14.5 % (11.7-14.2); RDW Standard Deviation 53.0 fL (35.1-46.3)
[2025-06-05 14:28] LABS: C-REACTIVE PROTEIN, EXT RANGE 0.898 mg/dL (0.000-0.300)
[2025-06-05 14:29] LABS: Alanine Aminotransfer (ALT/SGP 25.0 U/L (12-78); Albumin, Blood 3.4 g/dL (3.4-5.0); Albumin/Globulin Ratio 0.9 (0.8-1.8); Anion Gap 8.0 mmol/L (3-11); Aspartate Aminotrans (AST/SGOT 23.0 U/L (12-37); Bilirubin, Total 0.2 mg/dL (0.1-1.0); Blood Urea Nitrogen 21.0 mg/dL (8-24); CO2, Blood 28.0 mmol/L (21-32); Calcium, Blood 8.2 mg/dL (8.5-10.1); Chloride, Blood 108.0 mmol/L (98-108); Creatinine, Blood 1.02 mg/dL (0.40-1.00); Globulin, Blood 3.7 g/dL (2.2-4.0); Glucose, Blood 120.0 mg/dL (70-99); Potassium, Blood 3.8 mmol/L (3.5-5.5); Sodium, Blood 140.0 mmol/L (136-145); Total Protein, Blood 7.1 g/dL (6.4-8.2)
--- NOTE | 2025-06-05 16:23 | NUR ---
Lab results from today faxed to Dr. Lynch's office.
== END 2025-06-05 13:56 | disposition home or self-care (01) ==
LOC: ATC 02:53
PROVIDERS: Internal Medicine Infectious Disease
DX: M27.2 Inflammatory conditions of jaws (principal); I10 Essential (primary) hypertension; M81.0 Age-related osteoporosis without current pathological fracture; Z85.3 Personal history of malignant neoplasm of breast; Z79.899 Other long term (current) drug therapy; Z88.8 Allergy status to other drugs, medicaments and biological substances
CPT/HCPCS: 36591; 80053; 85025; 86140; 99211

== ENCOUNTER 2025-06-12 10:08 | Day surgery (SDC) | payer MEDICARE ==
[2025-06-12 11:52] VITALS: BP 140/66
[2025-06-12 12:39] LABS: BASOPHILS ABSOLUTE AUTO 0.05 K/mm3 (0.00-0.23); BASOPHILS PERCENT AUTO 1 % (0-2); EOSINOPHILS ABSOLUTE AUTO 0.19 K/mm3 (0.00-0.68); EOSINOPHILS PERCENT AUTO 3 % (0-6); Hematocrit 33.7 % (33.0-51.0); Hemoglobin 11.0 g/dL (11.5-16.0); IMMATURE GRAN ABSOLUTE AUTO 0.02 K/mm3 (0.00-0.10); IMMATURE GRAN PERCENT AUTO 0 % (0-1); LYMPHOCYTES ABSOLUTE AUTO 1.36 K/mm3 (0.84-5.20); LYMPHOCYTES PERCENT AUTO 20 % (21-46); MONOCYTES ABSOLUTE AUTO 0.53 K/mm3 (0.16-1.47); MONOCYTES PERCENT AUTO 8 % (4-13); Mean Corpuscular HGB Conc 32.6 g/dL (31.5-36.5); Mean Corpuscular Volume 96 fL (80-100); NEUTROPHILS ABSOLUTE AUTO 4.82 K/mm3 (1.96-9.15); NEUTROPHILS PERCENT AUTO 69 % (41-73); NRBC ABSOLUTE 0.00 K/mm3 (0.00-0.02); NRBC Auto 0.0 /100 WBC (0.0-0.2); Platelet Count 275 K/mm3 (150-400); RDW Coefficient Variation 13.8 % (11.7-14.2); RDW Standard Deviation 49.1 fL (35.1-46.3)
[2025-06-12 13:36] LABS: C-REACTIVE PROTEIN, EXT RANGE 0.811 mg/dL (0.000-0.300)
[2025-06-12 13:38] LABS: Alanine Aminotransfer (ALT/SGP 21.0 U/L (12-78); Albumin, Blood 3.5 g/dL (3.4-5.0); Albumin/Globulin Ratio 1.1 (0.8-1.8); Anion Gap 8.0 mmol/L (3-11); Aspartate Aminotrans (AST/SGOT 20.0 U/L (12-37); Bilirubin, Total 0.2 mg/dL (0.1-1.0); Blood Urea Nitrogen 15.0 mg/dL (8-24); CO2, Blood 30.0 mmol/L (21-32); Calcium, Blood 8.0 mg/dL (8.5-10.1); Chloride, Blood 106.0 mmol/L (98-108); Creatinine, Blood 1.05 mg/dL (0.40-1.00); Globulin, Blood 3.3 g/dL (2.2-4.0); Glucose, Blood 128.0 mg/dL (70-99); Potassium, Blood 3.4 mmol/L (3.5-5.5); Sodium, Blood 141.0 mmol/L (136-145); Total Protein, Blood 6.8 g/dL (6.4-8.2)
== END 2025-06-12 12:13 | disposition home or self-care (01) ==
LOC: ATC 10:08
PROVIDERS: Internal Medicine Infectious Disease
DX: M27.2 Inflammatory conditions of jaws (principal); I10 Essential (primary) hypertension; M81.0 Age-related osteoporosis without current pathological fracture; Z79.899 Other long term (current) drug therapy; Z88.6 Allergy status to analgesic agent; Z88.8 Allergy status to other drugs, medicaments and biological substances; Z85.3 Personal history of malignant neoplasm of breast; Z85.830 Personal history of malignant neoplasm of bone
CPT/HCPCS: 36591; 80053; 85025; 86140

== ENCOUNTER 2025-07-04 11:19 | Day surgery (SDC) | payer MEDICARE ==
[2025-07-04 11:40] VITALS: BP 129/66
[2025-07-04 12:58] LABS: BASOPHILS ABSOLUTE AUTO 0.05 K/mm3 (0.00-0.23); BASOPHILS PERCENT AUTO 1 % (0-2); EOSINOPHILS ABSOLUTE AUTO 0.18 K/mm3 (0.00-0.68); EOSINOPHILS PERCENT AUTO 3 % (0-6); Hematocrit 35.9 % (33.0-51.0); Hemoglobin 11.8 g/dL (11.5-16.0); IMMATURE GRAN ABSOLUTE AUTO 0.01 K/mm3 (0.00-0.10); IMMATURE GRAN PERCENT AUTO 0 % (0-1); LYMPHOCYTES ABSOLUTE AUTO 1.14 K/mm3 (0.84-5.20); LYMPHOCYTES PERCENT AUTO 16 % (21-46); MONOCYTES ABSOLUTE AUTO 0.65 K/mm3 (0.16-1.47); MONOCYTES PERCENT AUTO 9 % (4-13); Mean Corpuscular HGB Conc 32.9 g/dL (31.5-36.5); Mean Corpuscular Volume 94 fL (80-100); NEUTROPHILS ABSOLUTE AUTO 5.00 K/mm3 (1.96-9.15); NEUTROPHILS PERCENT AUTO 71 % (41-73); NRBC ABSOLUTE 0.00 K/mm3 (0.00-0.02); NRBC Auto 0.0 /100 WBC (0.0-0.2); Platelet Count 231 K/mm3 (150-400); RDW Coefficient Variation 12.7 % (11.7-14.2); RDW Standard Deviation 43.5 fL (35.1-46.3)
[2025-07-04 13:07] LABS: Alanine Aminotransfer (ALT/SGP 18.0 U/L (12-78); Albumin, Blood 3.3 g/dL (3.4-5.0); Albumin/Globulin Ratio 1.0 (0.8-1.8); Anion Gap 8.0 mmol/L (3-11); Aspartate Aminotrans (AST/SGOT 18.0 U/L (12-37); Bilirubin, Total 0.3 mg/dL (0.1-1.0); Blood Urea Nitrogen 21.0 mg/dL (8-24); C-REACTIVE PROTEIN, EXT RANGE 2.43 mg/dL (0.000-0.300); CO2, Blood 29.0 mmol/L (21-32); Calcium, Blood 8.5 mg/dL (8.5-10.1); Chloride, Blood 106.0 mmol/L (98-108); Creatinine, Blood 1.07 mg/dL (0.40-1.00); Globulin, Blood 3.3 g/dL (2.2-4.0); Glucose, Blood 154.0 mg/dL (70-99); Potassium, Blood 3.5 mmol/L (3.5-5.5); Sodium, Blood 139.0 mmol/L (136-145); Total Protein, Blood 6.6 g/dL (6.4-8.2)
== END 2025-07-04 12:01 | disposition home or self-care (01) ==
LOC: ATC 11:19
PROVIDERS: Internal Medicine Infectious Disease
DX: M27.2 Inflammatory conditions of jaws (principal); Z79.890 Hormone replacement therapy; Z79.899 Other long term (current) drug therapy; Z88.8 Allergy status to other drugs, medicaments and biological substances
CPT/HCPCS: 36591; 80053; 85025; 86140